=== PATIENT | male | born 1990 | race Caucasian/White ===

== ENCOUNTER → 2019-09-27 | Emergency (ER) | payer BC, OTHER ==
[~2019-09-27] VITALS: Ht 190.5 cm; Wt 142.9 kg
--- NOTE | 2019-09-27 12:58 | EKG ---
[facility] [address] [place], [place] [address] Signed Sinus tachycardia Otherwise normal ECG No previous ECGs available Confirmed by LIVIA ABRAHAM MD ([id number] on 09/27/2019 12:58:07 PM Electronically Signed By: LIVIA ABRHAAM MD 09/27/19 [id number] PATIENT NAME: HERBERT DAVIS Electrocardiogram DATE OF : 88 PHYSICIAN: LIVIA ABRAHAM MD REPORT #: [id number] REPORT IS CONFIDENTIAL AND NOT TO BE RELEASED WITHOUT AUTHORIZATION
== END ==
LOC: ED 12:13
DX: I21.4 Non-ST elevation (NSTEMI) myocardial infarction (principal); J18.9 Pneumonia, unspecified organism; Z88.1 Allergy status to other antibiotic agents
CPT/HCPCS: 71045; 80053; 83735; 84484; 85025; 85379; 85730; 93005; 93010; 96374; 96375; 99285-25; J1644

== ENCOUNTER 2023-03-13 10:45 | Emergency (ER) | payer OTHER, BC ==
[~2023-03-13] VITALS: Ht 190.5 cm; Wt 147.9 kg
[2023-03-13] MEDS ORDERED: NAPROSYN500 MG PO (11:58)
[2023-03-13 12:19] VITALS: BP 165/102
== END 2023-03-13 12:16 | disposition home or self-care (01) ==
LOC: ED 10:45
DX: M25.472 Effusion, left ankle (principal); M47.817 Spondylosis without myelopathy or radiculopathy, lumbosacral region; Z88.1 Allergy status to other antibiotic agents
CPT/HCPCS: 72100; 73610; 99283-25